=== PATIENT | male | born 1970 | race African-American/Black ===

== ENCOUNTER 2016-08-11 19:15 | Emergency (ER) | payer OTHER ==
[~2016-08-11] VITALS: Ht 177.8 cm; Wt 90.9 kg
[2016-08-11 19:31] VITALS: BP 131/93
== END 2016-08-11 22:45 | disposition home or self-care (01) ==
LOC: EMS 19:17
DX: S83.91XA Sprain of unspecified site of right knee, initial encounter (principal); S13.9XXA Sprain of joints and ligaments of unspecified parts of neck, initial encounter; S09.90XA Unspecified injury of head, initial encounter; V13.4XXA Pedal cycle driver injured in collision with car, pick-up truck or van in traffic accident, initial encounter; Y93.89 Activity, other specified; Y92.89 Other specified places as the place of occurrence of the external cause; Y99.8 Other external cause status
CPT/HCPCS: 72040; 99284